=== PATIENT | male | born 1960 | race Caucasian/White ===

== ENCOUNTER 2017-05-23 12:04 | Emergency (ER) | payer OTHER ==
[~2017-05-23] VITALS: Ht 172.7 cm; Wt 70.3 kg
[2017-05-23] MEDS ORDERED: EMS NS 0.9%(*) 1000 ML BAG 1,000 ML IV ONE (12:10)
[2017-05-23] MEDS ORDERED: DIPHTH/TETANUS/ACEL. PERTUSSIS IM ONE (12:15)
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
[2017-05-23] MEDS ORDERED: NS 0.9% 20 ML SDV 100 ML ONE (12:32)
[2017-05-23] MEDS ORDERED: IOPAMIDOL 76% 75 ML INFUS BTL 75 ML ONE (12:32)
[2017-05-23 12:38] LABS: PLATELET COUNT, AUTOMATED 283 K/uL (150-450)
[2017-05-23] MEDS ORDERED: ONDANSETRON 4 MG/2 ML VIAL IVP ONE (12:50)
[2017-05-23] MEDS ORDERED: MORPHINE 4 MG/ML SYR IVP ONE ×2 (12:50→15:45)
[2017-05-23] MEDS ORDERED: DIPHTH/TETANUS/ACEL. PERTUSSIS IM ONLY ONE (12:50)
[2017-05-23 13:04] LABS: INR 1.03
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
[2017-05-23] MEDS ORDERED: PROPOFOL EMUL 10MG/ML 20 ML VL IVP ONE (13:55)
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
[2017-05-23] MEDS ORDERED: fentaNYL CITR 100 MCG/2 ML AMP IVP ONE (14:00)
[2017-05-23] MEDS ORDERED: KETAMINE HCL 500 MG/5 ML VIAL IVP ONE (14:55)
[2017-05-23] MEDS ORDERED: MORPHINE 2 MG/ML SYR IVP ONE ×2 (16:00→17:20)
--- NOTE | 2017-05-23 16:26 | RADIOLOGY IMAGING REPORT ---
FACILITY: [facility] PATIENT NAME: Tristan Ness : 1960 MR: [id number] V: [id number] EXAM DATE: ORDERING PHYSICIAN: ONEIL JASON TECHNOLOGIST: Location: [facility] [place] Patient: Tristan Ness : 1960 Visit/Account:[id number] Date of Sevice: 05/23/2017 PELVIS HISTORY: post reduction Comparison made to previous CT scan from same day. FINDINGS: Successful relocation of the previous left posterior hip dislocation. Nondisplaced acetabular fractur e along the superior lateral aspect of the acetabulum. Pelvis is intact otherwise. Contrast within th e bladder from previous CT scan. IMPRESSION: 1. Successful relocation of the previously seen and described posterior left hip dislocation. Report Dictated By: Amos Prince MD at 05/23/2017 4:19 PM Report E-Signed By: Amos Prince MD at 05/23/2017 4:22 PM WSN:[id number]
[2017-05-23 17:00] VITALS: BP 135/86
[2017-05-23] MEDS ORDERED: NS(*) 0.9% 1000 ML BAG 1,000 ML IV ONE (18:00)
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
== END 2017-05-23 17:41 | disposition short-term general hospital (02) ==
LOC: ER 12:14
DX: S32.422A Displaced fracture of posterior wall of left acetabulum, initial encounter for closed fracture (principal); S73.005A Unspecified dislocation of left hip, initial encounter; S91.115A Laceration without foreign body of left lesser toe(s) without damage to nail, initial encounter; V64.5XXA Driver of heavy transport vehicle injured in collision with heavy transport vehicle or bus in traffic accident, initial encounter; Y92.410 Unspecified street and highway as the place of occurrence of the external cause; Y99.0 Civilian activity done for income or pay; K82.8 Other specified diseases of gallbladder; N20.0 Calculus of kidney; M47.9 Spondylosis, unspecified
CPT/HCPCS: 12001; 27250; 36415; 70450; 71045; 71260; 72125; 72170; 73700; 74177; 80320; 81001; 82150; 83605; 83690; 85025; 85610; 85730; 86850; 86900; 86901; 90471; 90715; 96361; 96374; 96375; 96376; 99152; 99285; J2270; J2405; J2704; J3010; J7030; J7050; Q9967; 82040; 82247; 82310; 82374; 82435; 82565; 82947; 84075; 84132; 84155; 84295; 84450; 84460; 84520

== ENCOUNTER → 2017-05-23 | Outpatient (CLI) | payer OTHER | LOC: AMB 10:43 | PROVIDERS: ATTEND Nurse Practitioner | DX: M25.552 Pain in left hip (principal); S91.312A Laceration without foreign body, left foot, initial encounter; V69.9XXA Occupant (driver) (passenger) of heavy transport vehicle injured in unspecified traffic accident, initial encounter | CPT/HCPCS: A0425; A0427 ==

== ENCOUNTER → 2017-05-23 | Outpatient (CLI) | payer OTHER | LOC: AMB 17:07 | PROVIDERS: ATTEND Nurse Practitioner | DX: S32.402A Unspecified fracture of left acetabulum, initial encounter for closed fracture (principal); V49.60XA Unspecified car occupant injured in collision with unspecified motor vehicles in traffic accident, initial encounter | CPT/HCPCS: A0425; A0426 ==